=== PATIENT | female | born 1950 | race Caucasian/White ===

== ENCOUNTER → 2017-01-02 | Outpatient (CLI) | payer MEDICARE ==
[~2017-01-02] MED LIST: ASPIR 8181 MG PO; BACTROBAN CREAM15 GM TOP; BENICAR HCT 201 EACH PO; CYMBALTA60 MG PO; DEXILANT60 MG PO; ELIQUIS5 MG PO; K-DUR TAB 20 M20 MEQ PO; LASIX40 MG PO; NORCO 7.5-3251 EACH PO; NORVASC 5 MG TAB5 MG PO; VITAMIN D50000 UNIT PO
== END ==
LOC: RAD 08:40
DX: K21.0 Gastro-esophageal reflux disease with esophagitis (principal); Z98.890 Other specified postprocedural states
CPT/HCPCS: 74220

== ENCOUNTER → 2021-01-24 | Outpatient (CLI) | payer MEDICARE ==
[~2021-01-24] VITALS: Ht 160 cm; Wt 84.8 kg
== END ==
LOC: OPSV 08:50
DX: M81.0 Age-related osteoporosis without current pathological fracture (principal)
CPT/HCPCS: 96365; J3489

== ENCOUNTER 2021-03-01 09:21 | Emergency (ER) | payer MEDICARE ==
[2021-03-01 10:18] LABS: HEMOGLOBIN 13.3 gm/dl (12.3-15.3); RED BLOOD COUNT 3.83 M/UL (4.00-5.10); WHITE BLOOD COUNT 10.3 K/UL (4.5-11.0)
[2021-03-01 10:41] LABS: BUN/CREATININE RATIO 14 (0-10)
== END 2021-03-01 15:36 | disposition home or self-care (01) ==
LOC: ER1 09:21
PROVIDERS: Physician Assistant
DX: M79.81 Nontraumatic hematoma of soft tissue (principal); I48.91 Unspecified atrial fibrillation; I10 Essential (primary) hypertension; Z91.040 Latex allergy status
CPT/HCPCS: 73700; 80053; 85025; 85610; 85730; 99284

== ENCOUNTER → 2021-03-02 | Outpatient (CLI) | payer MEDICARE ==
[2021-03-02 14:00] LABS: HEMOGLOBIN 13.9 gm/dl (12.3-15.3); RED BLOOD COUNT 3.95 M/UL (4.00-5.10); WHITE BLOOD COUNT 9.2 K/UL (4.5-11.0)
== END ==
LOC: LAB 12:51
PROVIDERS: Physician Assistant
DX: M79.81 Nontraumatic hematoma of soft tissue (principal)
CPT/HCPCS: 36415; 85025

== ENCOUNTER → 2021-06-08 | Outpatient (CLI) | payer MEDICARE ==
[2021-06-08 13:08] LABS: HEMOGLOBIN 13.5 gm/dl (12.3-15.3); RED BLOOD COUNT 3.98 M/UL (4.00-5.10); WHITE BLOOD COUNT 10.4 K/UL (4.5-11.0)
[2021-06-08 13:27] LABS: BUN/CREATININE RATIO 14 (0-10)
== END ==
LOC: LAB 12:19
PROVIDERS: Physician Assistant
DX: I48.91 Unspecified atrial fibrillation (principal); N39.0 Urinary tract infection, site not specified; R53.1 Weakness; R26.0 Ataxic gait; W19.XXXA Unspecified fall, initial encounter
CPT/HCPCS: 36415; 80048; 83735; 85025